=== PATIENT | male | born 1960 | race Caucasian/White ===

== ENCOUNTER 2018-05-26 07:51 | Day surgery (SDC) | payer MEDICAID ==
[2018-05-26] VITALS (18 sets, daily range): BP systolic 93–122; BP diastolic 47–71
[~2018-05-26] VITALS: Ht 170.2 cm; Wt 89.5 kg
[~2018-05-26 07:51] MED LIST: CYAN1TAB41 PO
[2018-05-26] MEDS ORDERED: NO HOME MEDS (08:20)
[2018-05-26] MEDS ORDERED: normal saline 1000ml 1,000 ML IV PRN (08:25)
[2018-05-26 08:39] LABS: BASOPHILS % (AUTO) 0.6 % (0-1); EOSINOPHILS # (AUTO) 0.7 X10'3 (0-0.9); EOSINOPHILS % (AUTO) 10.7 % (0-6); LYMPHOCYTES # (AUTO) 1.4 X10'3 (1.1-4.8); MEAN CORPUSCULAR HEMOGLOBIN 33.8 PG (27.0-31.0); MEAN CORPUSCULAR HGB CONC 33.8 % (33.0-36.5); MEAN CORPUSCULAR VOLUME 100.2 FL (78-98); MONOCYTES # (AUTO) 0.3 X10'3 (0-0.9); MONOCYTES % (AUTO) 4.5 % (2-12); NEUTROPHILS # (AUTO) 4.4 X10'3 (1.8-7.7); NEUTROPHILS % (AUTO) 64.2 % (42-75); PRE OP HEMATOCRIT 39.2 % (42.0-52.0); PRE OP HEMOGLOBIN 13.2 g/dL (14.0-17.9); PRE OP PLATELET COUNT 299 X10'3 (140-440); RED BLOOD COUNT 3.91 X10'6 (4.70-6.10); RED CELL DISTRIBUTION WIDTH 13.9 % (11.5-14.5)
[2018-05-26 08:51] LABS: ALBUMIN 4.3 G/DL (3.4-5.0); ANION GAP 11 (8-16); BLOOD UREA NITROGEN 16 MG/DL (7-18); BUN/CREATININE RATIO 15.8 (5.4-32.0); CALCIUM 9.5 MG/DL (8.5-10.1); CHLORIDE 100 MMOL/L (99-107); CREATININE 1.01 MG/DL (0.60-1.10); GLUCOSE 94 MG/DL (70-104); POTASSIUM 4.2 MMOL/L (3.5-5.1); SODIUM 139 MMOL/L (135-145); TOTAL CARBON DIOXIDE 27.9 MMOL/L (24-32); eGFR 76 ML/MIN
[2018-05-26 09:12] LABS: INR 0.9 INR; PROTHROMBIN TIME 9.6 SECONDS (9.0-12.0)
[2018-05-26] MEDS ORDERED: midazolam 2 mg/2 ml injection IV PRN (09:50)
[2018-05-26] MEDS ORDERED: LIDOcaine 1%/PF 5ML 10 MG/ML VIAL SQ ONE (09:50)
[2018-05-26] MEDS ORDERED: fentaNYL/PF 50MCG/1 ML 2ML syringe IV PRN (09:50)
[2018-05-26] MEDS ORDERED: LIDOcaine 1%/PF 5ML 10 MG/ML VIAL ONE (10:10)
[2018-05-26] MEDS ORDERED: fentaNYL/PF 50MCG/1 ML 2ML syringe ONE ×2 (10:11→10:52)
[2018-05-26] MEDS ORDERED: midazolam 2 mg/2 ml injection ONE (10:11)
[2018-05-26] MEDS ORDERED: HYDROcodone/acetaminophen 5mg/325mg tablet PO PRN ×2 (11:15)
== END 2018-05-26 14:00 | disposition home or self-care (01) ==
LOC: SSTAY O 07:51
PROVIDERS: ATTEND Radiology Diagnostic Radiology
DX: C22.9 Malignant neoplasm of liver, not specified as primary or secondary (principal); M19.90 Unspecified osteoarthritis, unspecified site; F10.21 Alcohol dependence, in remission; F41.8 Other specified anxiety disorders; Z79.891 Long term (current) use of opiate analgesic; Z87.891 Personal history of nicotine dependence; Z85.038 Personal history of other malignant neoplasm of large intestine; Z90.49 Acquired absence of other specified parts of digestive tract; Z98.890 Other specified postprocedural states; Z79.899 Other long term (current) drug therapy
CPT/HCPCS: 10022; 36415; 77012; 80048; 85025; 85610; 99152; 99153; J2001; J2250; J3010; J7030; 47000

== ENCOUNTER 2018-05-28 03:27 | Emergency (ER) | payer MEDICAID ==
[~2018-05-28] VITALS: Ht 170.2 cm; Wt 89.5 kg
[~2018-05-28 03:27] MED LIST changes: -CYAN1TAB41 PO; +NO HOME MEDS
[2018-05-28] MEDS ORDERED: normal saline 1000ML IV soln IVB ONE (03:45)
[2018-05-28] MEDS ORDERED: ondansetron/PF 4mg/2ml inj IV ONE (03:45)
[2018-05-28] MEDS: morphine 4 MG/ML inj SYRINge IV PRN ×2 (03:53→04:19)
[2018-05-28 04:04] LABS: BASOPHILS # (AUTO) 0.1 X10'3 (0-0.2); BASOPHILS % (AUTO) 1.1 % (0-1); EOSINOPHILS # (AUTO) 0.9 X10'3 (0-0.9); EOSINOPHILS % (AUTO) 11.1 % (0-6); HEMOGLOBIN 13.2 g/dl (14.0-17.9); LYMPHOCYTES # (AUTO) 2.2 X10'3 (1.1-4.8); LYMPHOCYTES % (AUTO) 27.8 % (21-51); MEAN CORPUSCULAR HEMOGLOBIN 33.7 PG (27.0-31.0); MEAN CORPUSCULAR VOLUME 102.1 FL (78-98); MEAN PLATELET VOLUME 8.1 FL (7.4-10.4); MONOCYTES # (AUTO) 0.4 X10'3 (0-0.9); MONOCYTES % (AUTO) 5.7 % (2-12); NEUTROPHILS # (AUTO) 4.3 X10'3 (1.8-7.7); NEUTROPHILS % (AUTO) 54.3 % (42-75); PLATELET COUNT 297 X10'3 (140-440); RED BLOOD COUNT 3.92 X10'6 (4.70-6.10); RED CELL DISTRIBUTION WIDTH 14.4 % (11.5-14.5); WHITE BLOOD COUNT 7.9 X10'3 (4.5-11.0)
[2018-05-28 04:19] LABS: ALANINE AMINOTRANSFERASE 93 U/L (12-78); ALBUMIN 3.9 G/DL (3.4-5.0); ALBUMIN/GLOBULIN RATIO 0.9 (1.1-1.5); ALKALINE PHOSPHATASE 263 IU/L (46-116); ANION GAP 11 (8-16); ASPARTATE AMINO TRANSFERASE 65 U/L (10-37); BILIRUBIN,TOTAL 0.4 MG/DL (0.1-1.0); BLOOD UREA NITROGEN 10 MG/DL (7-18); BUN/CREATININE RATIO 9.4 (5.4-32.0); CALCIUM 9.2 MG/DL (8.5-10.1); CHLORIDE 101 MMOL/L (99-107); CREATININE 1.06 MG/DL (0.60-1.10); GLUCOSE 121 MG/DL (70-104); LIPASE 167 U/L (73-393); POTASSIUM 3.8 MMOL/L (3.5-5.1); SODIUM 139 MMOL/L (135-145); TOTAL CARBON DIOXIDE 27.4 MMOL/L (24-32); TOTAL PROTEIN 8.2 G/DL (6.4-8.2); eGFR 72 ML/MIN
[2018-05-28 04:42] LABS: CLARITY,URINE CLEAR (Clear); COLOR,URINE YELLOW (Yellow); GLUCOSE, URINE NEGATIVE (Neg); KETONES,URINE TRACE mg/dl (Neg); LEUKOCYTE ESTERASE ,URINE NEGATIVE (Neg); NITRITES, URINE NEGATIVE (Neg); OCCULT BLOOD,URINE NEGATIVE (Neg); PH,URINE 5.5 (4.8-8.0); PROTEIN,URINE NEGATIVE (Neg)
[2018-05-28 04:45] LABS: UA COLLECTION TYPE CLN CATCH MIDSTREAM
[2018-05-28] MEDS ORDERED: HYDROmorphone 1 mg/ml syringe IV ONE (04:50)
[2018-05-28] MEDS ORDERED: ondansetron 4mg rapidly disintigrating tab PO ONE (05:20)
[2018-05-28] MEDS ORDERED: diazepam 5mg tablet PO ONE (05:20)
[2018-05-28] MEDS ORDERED: oxyCODONE/APAP 10/325mg tablet PO ONE (05:20)
[2018-05-28] MEDS ORDERED: ONDA4TAB9 PO (05:39)
[2018-05-28] MEDS ORDERED: METH500T PO (05:39)
[2018-05-28] MEDS ORDERED: OXYC-150 PO (05:39)
[2018-05-28] MEDS ORDERED: VAL5T PO (06:06)
[2018-05-28 06:27] VITALS: BP 139/81
== END 2018-05-28 06:55 | disposition home or self-care (01) ==
LOC: ER 03:27
DX: R10.32 Left lower quadrant pain (principal); M54.5 Low back pain; R11.2 Nausea with vomiting, unspecified; C22.9 Malignant neoplasm of liver, not specified as primary or secondary; Z85.038 Personal history of other malignant neoplasm of large intestine; Z90.49 Acquired absence of other specified parts of digestive tract
CPT/HCPCS: 36415; 74176; 80053; 81003; 83690; 85025; 96361; 96374; 96375; 99284; J1170; J2270; J2405; J7030

== ENCOUNTER 2018-06-19 08:55 | Day surgery (SDC) | payer MEDICAID ==
[~2018-06-19] VITALS: Ht 170.2 cm; Wt 88.8 kg
[~2018-06-19 08:55] MED LIST changes: +METH500T PO; +ONDA4TAB9 PO; +OXYC-150 PO; +VAL5T PO
[2018-06-19] MEDS ORDERED: normal saline 1000ml 1,000 ML IV ONE (09:15)
[2018-06-19 09:30] VITALS: BP 123/70
[2018-06-19] MEDS ORDERED: OXYC-150 PO (10:30)
[2018-06-19] MEDS ORDERED: ONDA4TAB12 PO (10:30)
[2018-06-19] MEDS ORDERED: LIDOcaine 1%/PF 5ML 10 MG/ML VIAL ONE (11:50)
[2018-06-19 11:53] LABS: BASOPHILS # (AUTO) 0.1 X10'3 (0-0.2); BASOPHILS % (AUTO) 1.3 % (0-1); EOSINOPHILS # (AUTO) 0.9 X10'3 (0-0.9); HEMOGLOBIN 11.9 g/dl (14.0-17.9); LYMPHOCYTES # (AUTO) 1.2 X10'3 (1.1-4.8); LYMPHOCYTES % (AUTO) 22.3 % (21-51); MEAN CORPUSCULAR HEMOGLOBIN 34.5 PG (27.0-31.0); MEAN CORPUSCULAR VOLUME 101.2 FL (78-98); MEAN PLATELET VOLUME 8.9 FL (7.4-10.4); MONOCYTES # (AUTO) 0.3 X10'3 (0-0.9); MONOCYTES % (AUTO) 5.7 % (2-12); NEUTROPHILS % (AUTO) 53.7 % (42-75); PLATELET COUNT 267 X10'3 (140-440); RED BLOOD COUNT 3.46 X10'6 (4.70-6.10); RED CELL DISTRIBUTION WIDTH 14.4 % (11.5-14.5); WHITE BLOOD COUNT 5.5 X10'3 (4.5-11.0)
[2018-06-19 12:00] LABS: ALBUMIN 3.2 G/DL (3.4-5.0); ANION GAP 9 (8-16); BLOOD UREA NITROGEN 16 MG/DL (7-18); BUN/CREATININE RATIO 18.2 (5.4-32.0); CALCIUM 8.8 MG/DL (8.5-10.1); CHLORIDE 101 MMOL/L (99-107); CREATININE 0.88 MG/DL (0.60-1.10); GLUCOSE 98 MG/DL (70-104); POTASSIUM 3.7 MMOL/L (3.5-5.1); SODIUM 137 MMOL/L (135-145); TOTAL CARBON DIOXIDE 26.8 MMOL/L (24-32); eGFR 89 ML/MIN
[2018-06-19] MEDS ORDERED: midazolam 2 mg/2 ml injection ONE (12:03)
[2018-06-19] MEDS ORDERED: heparin sodium, porcine/PF 100unit/ml 5ML syringe ONE (12:03)
[2018-06-19] MEDS ORDERED: fentaNYL/PF 50MCG/1 ML 2ML syringe ONE (12:04)
[2018-06-19 12:45] VITALS: BP 124/69
[2018-06-19 13:00] VITALS: BP 121/68
[2018-06-19 13:15] VITALS: BP 108/59
== END 2018-06-19 13:20 | disposition home or self-care (01) ==
LOC: SSTAY O 08:55
PROVIDERS: ATTEND Radiology Vascular & Interventional Radiology
DX: C25.0 Malignant neoplasm of head of pancreas (principal); M19.90 Unspecified osteoarthritis, unspecified site; G89.29 Other chronic pain; F41.8 Other specified anxiety disorders; F10.21 Alcohol dependence, in remission; Z87.891 Personal history of nicotine dependence; Z79.891 Long term (current) use of opiate analgesic; Z85.038 Personal history of other malignant neoplasm of large intestine; Z90.49 Acquired absence of other specified parts of digestive tract; Z98.890 Other specified postprocedural states; Z79.899 Other long term (current) drug therapy
CPT/HCPCS: 36415; 36561; 76937; 77001; 80048; 85025; 85610; 99152; 99153; J1642; J2001; J2250; J3010; J7030; A6219; C1788; C1894